=== PATIENT | female | born 1975 | race Caucasian/White ===

== ENCOUNTER 2024-02-05 07:25 | Observation (INO) ==
--- NOTE | 2024-02-05 07:39 | Emergency Department Note ---
History of Present Illness General Chief complaint: Weakness Stated complaint: WEAKNESS Time Seen by Provider: 02/05/24 07:31 Source: patient, family (I talked to the sister on the telephone), EMS (I talked to the paramedics when they brought her in), RN notes reviewed, old records reviewed (Attempted but no old record available) and other (I talked to Dr. Livingston's nurse on the telephone) Mode of arrival: ambulatory Limitations: no limitations History of Present Illness This patient is a 41-year-old female who has a history of dual diagnosis and is currently in inpatient [facility] comes in with increasing weakness and fluid buildup in her legs. She has been in [facility] for 2 weeks she did have a history of alcoholism and tells me she had not drank 40 days prior to going in and has been there for 2 weeks. She has had increased fluid buildup in her legs and also her right knee she has had increasing weakness she has got lightheaded and almost passed out in the bathroom today. No chest pain or shortness of breath .no fever chills.no dysuria or hematuria .no abdominal pain. no focal numbness or weakness except for being weak in the legs. She has had no blood or melena in her stool. She has not been vomiting and had no hematemesis. Home Medications Medication Instructions Recorded Confirmed Type acamprosate 333 mg tablet,delayed 333 mg PO TID 02/05/24 02/05/24 History release buspirone 10 mg tablet 10 mg PO DAILY 02/05/24 02/05/24 History carvedilol 3.125 mg tablet 0 mg PO DIRECTED 02/05/24 02/05/24 History ferrous sulfate 325 mg (65 mg 325 mg PO DAILY 02/05/24 02/05/24 History iron) tablet (FeroSul) lamotrigine 100 mg tablet 100 mg PO BID 02/05/24 02/05/24 History levothyroxine 50 mcg tablet 50 mcg PO DAILY 02/05/24 02/05/24 History medroxyprogesterone 150 mg/mL 150 mg IM DIRECTED 02/05/24 02/05/24 History intramuscular suspension potassium chloride 10 mEq 10 meq PO DAILY 02/05/24 02/05/24 History capsule,extended release quetiapine 100 mg tablet 100 mg PO HS 02/05/24 02/05/24 History vilazodone 20 mg tablet 10 mg PO BID 02/05/24 02/05/24 History Allergies Allergy/AdvReac Type Severity Reaction Status Date / Time No Known Allergies Allergy Unverified 02/05/24 14:18 Past Med/Surg History Problem List (Updated 02/05/24 @ 14:36 by Jefferson Morgan MD) Pancytopenia (Acute) Hypervolemia Right leg swelling (Acute) Alcohol use disorder (Acute) Weakness (Acute) Medical History History of torn meniscus of right knee Hypertension Liver cirrhosis Anxiety Bipolar 1 disorder Borderline personality disorder Depression Hypothyroidism Social History Smoking Status: Unknown if ever smoked Feels Safe at Home: Yes Immunizations: Past medical historyanxiety. Alcoholism Social history. she is from the [facility] she is currently at [facility] history of alcoholism Review of Systems A total of 10 systems reviewed and were otherwise negative Physical Exam Vital Signs Vital Signs - 24 hr 02/05/24 07:15 02/05/24 07:15 02/05/24 08:00 Temperature 36.5 C Temperature Source Oral Pulse Rate 66 Pulse Rate [Apical] 71 Pulse Rhythm [Apical] Regular Pulse Strength [Apical] Normal Respiratory Rate 16 22 Respiratory Effort / Characteristics Non-Labored Spontaneous Respiratory Depth Normal Respiratory Pattern Regular Blood Pressure 97/60 L Blood Pressure [Right Arm] 111/73 Blood Pressure Mean 72 Blood Pressure Mean [Right Arm] 85 Blood Pressure Position [Right Arm] Sitting Pulse Oximetry 100 100 Oxygen Delivery Method Room Air Room Air Sepsis Recent Fever Within 48 Hours No Sepsis New/Unexplained Change in Mental Status No Sepsis Action Taken by Nursing No Action Required 02/05/24 08:20 02/05/24 09:00 02/05/24 10:55 Temperature Temperature Source Pulse Rate 66 Pulse Rate [Apical] 64 74 Pulse Rhythm [Apical] Regular Regular Pulse Strength [Apical] Normal Normal Respiratory Rate 18 18 Respiratory Effort / Characteristics Non-Labored Spontaneous Non-Labored Spontaneous Respiratory Depth Normal Normal Respiratory Pattern Regular Regular Blood Pressure Blood Pressure [Right Arm] 112/70 114/74 Blood Pressure Mean Blood Pressure Mean [Right Arm] 84 87 Blood Pressure Position [Right Arm] Sitting Sitting Pulse Oximetry 98 100 Oxygen Delivery Method Room Air Room Air Sepsis Recent Fever Within 48 Hours Sepsis New/Unexplained Change in Mental Status Sepsis Action Taken by Nursing 02/05/24 12:47 Temperature Temperature Source Pulse Rate 71 Pulse Rate [Apical] Pulse Rhythm [Apical] Pulse Strength [Apical] Respiratory Rate Respiratory Effort / Characteristics Respiratory Depth Respiratory Pattern Blood Pressure Blood Pressure [Right Arm] Blood Pressure Mean Blood Pressure Mean [Right Arm] Blood Pressure Position [Right Arm] Pulse Oximetry Oxygen Delivery Method Sepsis Recent Fever Within 48 Hours Sepsis New/Unexplained Change in Mental Status Sepsis Action Taken by Nursing General: Well developed well nourished middle-age female who appears in no acute distress, breathing comfortably on room air. Normal speech HEENT: Normal cephalic atraumatic. Pupils are equal round and reactive to light. Sclera anicteric. Extraocular movements are intact. Oropharynx is pink with moist mucous membranes. No swelling of the mouth lips or tongue. Neck: Supple with a midline trachea. No meningeal signs or stiffness, no JVD or bruits. No Stridor. Chest: Clear to auscultation bilaterally. No wheezes or rhonchi. No increased work of breathing. Heart: Regular rate and rhythm without murmurs or gallops. Abdomen: Soft nontender, nondistended without rebound guarding or rigidity. Extremities: No cyanosis clubbing trace to 1+ bilateral lower extremity edema. No calf tenderness or assymetry. There may be some mild swelling of the right knee as well but there is no redness or warmth Spine/Back. Non tender to palpation. No CVA tenderness Skin: Good turgor without rashes. Neurologic exam: Cranial nerves two through 12 are intact. Motor and sensation are intact and symmetrical throughout. No definite asterixis. Medical Decision Making Differential Diagnosis Electrolyte or metabolic abnormality, toxicologic, alcohol use or withdrawal, liver disease, hepatic encephalopathy, cardiac disease, arrhythmia Medical Records Attestation: I reviewed the patient's medical records. Home Medications Current Medication List: was personally reviewed by me Laboratory Data Attestation: I reviewed the patient's lab results. 02/05/24 07:46 02/05/24 07:46 Lab Results 02/05/24 02/05/24 02/05/24 Range/Units 07:46 07:56 09:37 WBC 2.48 L (4.8-10.8) K/ul RBC 3.30 L (4.20-5.40) M/uL Hgb 10.4 L (12.0-16.0) g/dl Hct 31.5 L (37.0-47.0) % MCV 95.5 (80.0-100.0) fL MCH 31.5 (25.0-34.0) pg MCHC 33.0 (32.0-36.0) g/dL RDW Std Deviation 61.9 H (36.4-46.3) fL RDW Coeff of Felicitas 17.7 H (11.5-14.5) % Plt Count 30 L (130-400) K/uL MPV 12.4 (9.4-12.4) fL Immature Gran % (Auto) 0.4 % Neut % (Auto) 67.3 % Lymph % (Auto) 20.2 % [place] % (Auto) 7.7 % Eos % (Auto) 3.6 % Baso % (Auto) 0.8 % Neut # (Auto) 1.67 (1.40-6.50) K/uL Lymph # (Auto) 0.50 L (1.20-3.40) K/uL [place] # (Auto) 0.19 (0.11-0.59) K/uL Eos # (Auto) 0.09 (0.00-0.50) K/uL Baso # (Auto) 0.02 (0.00-0.20) K/uL Immature Gran # (Auto) 0.01 (0.01-0.20) K/uL Platelet Estimate Signific. Decreased L (Normal) Polychromasia 1+ Tear Drop Cells 1+ PT 14.3 H (9.0-12.0) Seconds INR 1.4 H (0.9-1.1) APTT 29 (21-31) Seconds PTT Ratio 1.1 Sodium 142 (136-145) mmol/L Potassium 3.8 (3.5-5.1) mmol/L Chloride 114 H (98-107) mmol/L Carbon Dioxide 22 (21-32) mmol/L Anion Gap 6 (3-11) BUN 14 (6-23) mg/dl Creatinine 0.74 (0.6-1.2) mg/dl Est Cr Clr Drug Dosing 121.1 ml/min eGFR 99.74 BUN/Creatinine Ratio 18.9 (10-20) Glucose 92 (70-99(Fasting)) mg/dl Lactate 2.0 (0.4-2.0) mmol/L Calcium 8.4 L (8.6-10.3) mg/dl Phosphorus (2.5-4.9) mg/dl Magnesium 1.7 (1.7-2.4) mg/dl Total Bilirubin 2.6 H (0.2-1.0) mg/dl AST 31 (13-39) U/L ALT 13 (7-52) U/L Alkaline Phosphatase 90 (34-104) U/L Ammonia TNP 34.0 Total Creatine Kinase 89 (26-192) U/L Troponin I High Sens 9.0 (0-14) pg/ml B-Natriuretic Peptide 137 H (0-100) pg/ml Total Protein 5.3 L (6.0-8.3) gm/dl Albumin 3.0 L (3.4-5.0) gm/dl Globulin 2.3 L (2.5-4.0) gm/dl Albumin/Globulin Ratio 1.3 (0.9-2) Vitamin B12 (180-914) pg/ml Folate (>5.38) ng/ml Procalcitonin (0-0.5) ng/ml TSH 3.209 (0.300-4.500) uIu/ml Ethyl Alcohol mg/dL < 10.0 (<10.0) mg/dl SARS-CoV-2, RNA, NAAT NEGATIVE (NEGATIVE) 02/05/24 Range/Units 11:58 WBC (4.8-10.8) K/ul RBC (4.20-5.40) M/uL Hgb (12.0-16.0) g/dl Hct (37.0-47.0) % MCV (80.0-100.0) fL MCH (25.0-34.0) pg MCHC (32.0-36.0) g/dL RDW Std Deviation (36.4-46.3) fL RDW Coeff of Felicitas (11.5-14.5) % Plt Count (130-400) K/uL MPV (9.4-12.4) fL Immature Gran % (Auto) % Neut % (Auto) % Lymph % (Auto) % [place] % (Auto) % Eos % (Auto) % Baso % (Auto) % Neut # (Auto) (1.40-6.50) K/uL Lymph # (Auto) (1.20-3.40) K/uL [place] # (Auto) (0.11-0.59) K/uL Eos # (Auto) (0.00-0.50) K/uL Baso # (Auto) (0.00-0.20) K/uL Immature Gran # (Auto) (0.01-0.20) K/uL Platelet Estimate (Normal) Polychromasia Tear Drop Cells PT (9.0-12.0) Seconds INR (0.9-1.1) APTT (21-31) Seconds PTT Ratio Sodium (136-145) mmol/L Potassium (3.5-5.1) mmol/L Chloride (98-107) mmol/L Carbon Dioxide (21-32) mmol/L Anion Gap (3-11) BUN (6-23) mg/dl Creatinine (0.6-1.2) mg/dl Est Cr Clr Drug Dosing ml/min eGFR BUN/Creatinine Ratio (10-20) Glucose (70-99(Fasting)) mg/dl Lactate (0.4-2.0) mmol/L Calcium (8.6-10.3) mg/dl Phosphorus 3.8 (2.5-4.9) mg/dl Magnesium (1.7-2.4) mg/dl Total Bilirubin (0.2-1.0) mg/dl AST (13-39) U/L ALT (7-52) U/L Alkaline Phosphatase (34-104) U/L Ammonia Total Creatine Kinase (26-192) U/L Troponin I High Sens (0-14) pg/ml B-Natriuretic Peptide (0-100) pg/ml Total Protein (6.0-8.3) gm/dl Albumin (3.4-5.0) gm/dl Globulin (2.5-4.0) gm/dl Albumin/Globulin Ratio (0.9-2) Vitamin B12 668 (180-914) pg/ml Folate > 22.30 (>5.38) ng/ml Procalcitonin 0.05 (0-0.5) ng/ml TSH (0.300-4.500) uIu/ml Ethyl Alcohol mg/dL (<10.0) mg/dl SARS-CoV-2, RNA, NAAT (NEGATIVE) Imaging Data Attestation: I personally reviewed and interpreted this imaging study as follows: My Impression: Chest x-raycardiomegaly there may be a mild congestive change. Head CTno hemorrhage or mass effect seen Radiologist's Impression: Chest X-Ray 02/05/24 07:32 XR chest 1V portable CLINICAL HISTORY: weakness COMPARISON STUDY: No previous studies for comparison. FINDINGS: Lung volumes are mildly diminished. There is no pneumothorax or pleural effusion. No consolidation to suggest pneumonia. There is mild enlargement of the cardiac silhouette and prominence of pulmonary vasculature. The findings may be technical. IMPRESSION: Mild enlargement of the cardiac silhouette and apparent pulmonary vascular congestion. The findings may be detected on this hypoventilatory study. ACT 112: Negative or not required by law. Electronically signed by: Naseem Milian M.D. 02/05/2024 8:[address] 02/05/24 08:10 CT head/brain wo con CLINICAL HISTORY: 49 years-old Female with weakness. Acute weakness TECHNIQUE: Multiple axial CT images of the head were obtained without contrast. A dose lowering technique was utilized adhering to the principles of ALARA. CT DOSE: 663.26 mGy.cm COMPARISON: None. FINDINGS: No acute intracranial hemorrhage, midline shift, intracranial mass, hydrocephalus, territorial ischemia or abnormal extra-axial collection. The calvarium is intact. The paranasal sinuses, mastoid air cells, and middle ear cavities are clear. IMPRESSION: No acute intracranial abnormality. ACT 112: Negative or not required by law. The above report was generated using voice recognition software. It may contain grammatical, syntax or spelling errors. Electronically signed by: Walker Marie M.D. 02/05/2024 8:59 AM Abdomen Ultrasound 02/05/24 10:48 US abdomen complete CLINICAL HISTORY: hypervolemic state ?cirrhosis, ascites, hydronephrosis COMPARISON STUDY: No previous studies for comparison. FINDINGS: This exam is significantly compromised by suboptimal penetration. No biliary ductal dilatation is identified. There is apparent nodularity of the liver surface. No hepatic lesions are identified although the liver is partially obscured. No gallstones are present. There is no sonographic Benson sign. Gallbladder wall thickening is noted. The wall appears edematous. The wall measures 1 cm in thickness. The pancreas is largely obscured. The spleen is enlarged, measuring 22 cm in craniocaudal dimension. There is no hydronephrosis. Right kidney is partially obscured. The left kidney measures 12.8 cm in maximal dimension. Caliber of visualized portions of the abdominal aorta is normal. No ascites is identified. IMPRESSION: 1. Exam significantly compromised by suboptimal penetration. Nodularity of the liver surface raises the possibility of cirrhosis. 2. No gallstones. No sonographic Benson sign. Moderate gallbladder wall thickening, a nonspecific finding, although cholecystitis is considered unlikely. 3. Moderate to marked splenomegaly. 4. Obscured pancreas and right kidney. ACT 112: Negative or not required by law. Electronically signed by: Naseem Milian M.D. 02/05/2024 12:25 PM Venous Doppler Study 02/05/24 12:21 RIGHT LOWER EXTREMITY VENOUS DOPPLER CLINICAL HISTORY: Right leg swelling. ?DVT COMPARISON STUDY: No previous studies for comparison. TECHNIQUE: Sonography of the deep venous system of the right lower extremity was performed. Compression and augmentation were evaluated. FINDINGS: The right common femoral, superficial femoral and popliteal veins were compressible. Augmentation was normal. Flow was shown within the deep calf vessels. Subcutaneous edema within the right lower extremity is noted. IMPRESSION: No evidence of deep venous thrombus within the right lower extremity. ACT 112: Negative or not required by law. Electronically signed by: Naseem Milian M.D. 02/05/2024 2:02 PM Knee X-Ray 02/05/24 12:26 RIGHT KNEE 2 VIEWS CLINICAL HISTORY: Right knee pain and swelling. FINDINGS: AP and crosstable lateral views of the right knee are obtained. No prior studies are available for comparison at the time of dictation. The skeletal structures are osteopenic. No fracture is seen. There is moderate to severe tricompartmental degenerative joint space narrowing, greatest in the lateral compartment where there is bony sclerosis and osteochondral irregularity. There are large marginal osteophytes, patellar enthesophytes, and degenerative beaking of the tibial spine. Chondrocalcinosis is seen in the medial compartment. A joint effusion is observed. Bony overgrowth is seen along the distal femur and proximal tibia. Soft tissue swelling is noted around the knee. IMPRESSION: 1. Soft tissue swelling and joint effusion with no radiographic evidence of acute fracture. 2. Osteopenia with degenerative change and chondrocalcinosis as above. Electronically signed by: Stanislav Vu M.D. 02/05/2024 2:11 PM ECG Data Attestation: I personally reviewed and interpreted this ECG as follows: Indication: + weakness Rate (beats per minute): 67 Rhythm: + normal sinus ECG Intervals/blocks: + Normal QRS, + Normal QT and + Normal NV ECG [place]: + Normal ECG ST segments: + Normal ST segments ECG Findings: no PACs or no PVCs Comparison ECG Date: no prior available MDM Narrative This patient comes in as described above. She was placed on a last ironer room C2 she has had increasing weakness and was having a hard time getting around. It seems like it is in her legs bilaterally she has no focal neurologic deficits. She is currently at [facility] and being treated for dual diagnosis including alcoholism. Her vital signs are stable. IV access was established and multiple blood testing was obtained. EKG was obtained shows no acute ischemic changes or ectopy seen. Her troponin was unremarkable. She does have pancytopenia which are about baseline. Her white count is low her hemoglobin is 10 which is baseline her platelets are 30,000 which is baseline I did talk to her sister as well as the nurse at the liver clinic she is followed that and they both said that she runs at 31,000 for platelets. She is no evidence of any active bleeding. She has been hemodynamically stable. She does have a history of varices but has no evidence to suggest she should acutely bleeding by history physical or labs. Her ammonia is normal and she does not appear to be in hepatic hepatic encephalopathy. It seems like she has had some lower extremity edema and that is causing her pain and difficulty work walking. At this point I do not think she can go back to [facility] until she is able to ambulate more. I did consult Dr. Parham to see the patient ER for these measures. Again I talked to the sister on the phone I also talked to Dr. Livingston's nurse and she did not have any further recommendations. The number to reach Dr. Livingston is [phone], or [phone]. Continuous cardiac monitoring: Orders placed in EMR for continuous last ironer call upon my evaluation patient noted to be in normal sinus rhythm rate of 67 Impression & Plan Weakness, Pancytopenia, Alcohol use disorder, Right leg swelling Discharge Plan Visit Data Chief Complaint: Weakness Stated Complaint: WEAKNESS ED Provider: Jefferson Morgan Discharge Problem: Weakness, Pancytopenia, Alcohol use disorder, Right leg swelling Patient Disposition: Admitted As Inpatient Discharge Instructions Interventions: ED Discharge Assessment Last Done: 02/05/24 14:22
[2024-02-05 08:20] LABS: Bilirubin,Total 2.6 mg/dl (0.2-1.0); Calcium 8.4 mg/dl (8.6-10.3); Magnesium 1.7 mg/dl (1.7-2.4); Potassium 3.8 mmol/L (3.5-5.1)
--- NOTE | 2024-02-05 08:22 | XRay Report ---
XR chest 1V portable CLINICAL HISTORY: weakness COMPARISON STUDY: No previous studies for comparison. FINDINGS: Lung volumes are mildly diminished. There is no pneumothorax or pleural effusion. No consol idation to suggest pneumonia. There is mild enlargement of the cardiac silhouette and prominence of p ulmonary vasculature. The findings may be technical. IMPRESSION: Mild enlargement of the cardiac silhouette and apparent pulmonary vascular congestion. T he findings may be detected on this hypoventilatory study. ACT 112: Negative or not required by law. Electronically signed by: Naseem Milian M.D. 02/05/2024 8:20 AM
[2024-02-05 08:26] LABS: Albumin Globulin Ratio 1.3 (0.9-2); BUN Creatinine Ratio 18.9 (10-20); Creatinine Clr Calc Pharmacy 121.1 ml/min; Globulin 2.3 gm/dl (2.5-4.0); Total Protein 5.3 gm/dl (6.0-8.3)
[2024-02-05 08:37] LABS: Basophils # (auto) 0.02 K/uL (0.00-0.20); Basophils % (auto) 0.8 %; Eosinophils # (auto) 0.09 K/uL (0.00-0.50); Eosinophils % (auto) 3.6 %; Hematocrit (blood only) 31.5 % (37.0-47.0); Hemoglobin 10.4 g/dl (12.0-16.0); INR 1.4 (0.9-1.1); Immature Granulocytes # (auto) 0.01 K/uL (0.01-0.20); Immature Granulocytes % (auto) 0.4 %; Lymphocytes % (auto) 20.2 %; Mean Corpuscular Hemoglobin 31.5 pg (25.0-34.0); Mean Corpuscular Volume 95.5 fL (80.0-100.0); Mean Platelet Volume 12.4 fL (9.4-12.4); Monocytes # (auto) 0.19 K/uL (0.11-0.59); Monocytes % (auto) 7.7 %; Neutrophils # (auto) 1.67 K/uL (1.40-6.50); Neutrophils % (auto) 67.3 %; Partial Thromboplastin Ratio 1.1; Partial Thromboplastin Time 29 Seconds (21-31); Platelet Count 30 K/uL (130-400); Platelet Estimate Signific. Decreased (Normal); Polychromasia 1+; Prothrombin Time 14.3 Seconds (9.0-12.0); RDW Coefficient of Variation 17.7 % (11.5-14.5); RDW Standard Deviation 61.9 fL (36.4-46.3); Tear Drop Cells 1+; White Blood Count 2.48 K/ul (4.8-10.8)
[2024-02-05 08:40] LABS: Thyroid Stimulating Hormone 3.209 uIu/ml (0.300-4.500)
--- NOTE | 2024-02-05 09:00 | CT Scan Report ---
CT head/brain wo con CLINICAL HISTORY: 49 years-old Female with weakness. Acute weakness TECHNIQUE: Multiple axial CT images of the head were obtained without contrast. A dose lowering tech nique was utilized adhering to the principles of ALARA. CT DOSE: 663.26 mGy.cm COMPARISON: None. FINDINGS: No acute intracranial hemorrhage, midline shift, intracranial mass, hydrocephalus, territorial ischem ia or abnormal extra-axial collection. The calvarium is intact. The paranasal sinuses, mastoid air cells, and middle ear cavities are clear . IMPRESSION: No acute intracranial abnormality. ACT 112: Negative or not required by law. The above report was generated using voice recognition software. It may contain grammatical, syntax o r spelling errors. Electronically signed by: Walker Marie M.D. 02/05/2024 8:59 AM
--- NOTE | 2024-02-05 10:45 | Electrocardiogram Report ---
Test Reason : Blood Pressure : */* mmHG Vent. Rate : 67 BPM Atrial Rate : 67 BPM P-R Int : 162 ms QRS Dur : 88 ms QT Int : 448 ms P-R-T Axes : -14 52 38 degrees QTcB Int : 473 ms Normal sinus rhythm No previous ECGs available Confirmed by Vinny Jacobsen ([id number]) on 02/05/2024 10:45:24 AM Referred By: Confirmed By: Vinny Jacobsen
--- NOTE | 2024-02-05 10:59 | History & Physical Report ---
Date of Service February 05, 2024 Assessment & Plan (1) Hypervolemia: Plan: Weight increased with bilateral leg swelling - suspect contributing towards ambulatory dysfunction US abdomen to assess for ascites. Reportedly known cirrhosis of her liver. TTE to assess for cardiomyopathy UA to assess for proteinuria Lasix 40 mg IV Strict I's and O's Daily standing weight (2) Right leg swelling: Plan: Ultrasound venous Doppler to rule out DVT (3) Effusion, right knee: Plan: Suspect this is the biggest reason for ambulatory dysfunction. Unclear underlying etiology although meniscal tear mentioned on admission notes at [facility] therefore low suspicion it is acute but certainly could be getting worse. XR right knee. If ultrasound venous Doppler negative for DVT will consult orthopedics to consider aspiration for diagnostic and therapeutic purposes. (4) Weakness: Plan: No one sided weakness to suggest CVA - suspect combination of her medications with right knee pain Her new medication is Latuda and since this is a medication she takes at 5 PM as per nurse at [facility] I suspect this is the medication that she reports having a side effect to including tiredness, clammy, dizziness. Consult psychiatry to consider switching this medication B12, B1 labs - not noted to be on thiamine, will start supplementation (5) Alcohol use disorder: Plan: Previously on Campral although this does not appear to be on a current medication list (6) Liver cirrhosis: Plan: Presumably alcohol related MELD 3.0 - 16.6, 97.4% estimated 90-day survival (7) Pancytopenia: Plan: Known thrombocytopenia per [facility] although I suspect her pancytopenia is not acute either and likely secondary to liver cirrhosis Procalcitonin negative. Low suspicion of septic knee on exam. Trend with AM labs (8) Elevated INR: Plan: INR 1.4. Suspect secondary to liver cirrhosis. Vitamin K 10 mg IV. Repeat INR in AM. (9) Hypertension: Plan: Hold carvedilol due to dizziness and increasing Lasix as above (10) Hypothyroidism: Plan: TSH 3.2. Continue levothyroxine (11) Depression: (12) Borderline personality disorder: (13) Bipolar 1 disorder: (14) Anxiety: (15) History of torn meniscus of right knee: Plan VTE prophylaxis - SCDs Diet - Low Na Disposition - observation to med/tele Admission and Anticipated Discharge Date Admission Date: February 05, 2024 History of Present Illness Chief Complaint: Ambulatory dysfunction Fall Right knee pain Primary Care Provider: [facility] Claribel Kyle is a 49 year old female from [facility] who presents to the ER with generalized weakness and fall. History limited by lack of records from outside institutions and patient memory - history largely obtained from nurses at [facility] rehabilitation over the phone. She came to the ER today because on ambulating towards the bathroom she fell and was unable to ambulate following this or bear any weight on her right knee. She denies any dizziness, chest pain, shortness of breath prior to falling. She is unclear on history for the pain and swelling of her right knee but appears to have been ongoing for atleast the last month but getting wrose. She denies any history of gout or inflammatory arthritis. On discussion with [place] she has a history of meniscal tear of her right knee listed on her problem list on admission there in mid January. She has a history of alcohol use disorder. She was admitted to [facility] and went through withdrawal. She was transferred to [facility] rehab mid January for ongoing rehabilitation. During her time there she notes gaining 25 to 30 pounds over the last 5 weeks with significant leg swelling. Weight 239lb on 01/10/24 (admission weight at [facility], today's weight 259lb). No chest pain or shortness of breath. She was taking Lasix at [facility] although reportedly was discontinued for the last few days possibly due to dizziness. She was on additional doses of Lasix for fluid retention for 3 days a mid-January. No known history of heart failure. She has noticed some dizziness but not prior to this fall. She reports having a new medication around 1 to 2 PM which causes her to be dizzy, nauseous, tired and clammy. On discussion with [facility] I suspect this is her Latuda which is a new medication for her during her time at [facility] and she takes around 5pm unlike her other medications at 8am and 8pm. Previously she was on vilazodone which on discussion with her I believe this started at [place] but discontinued shortly after she went to [facility]. Reportedly she went to [facility] on January 22 due to ambulatory dysfunction and was discharged from the ER with a diagnosis of liver cirrhosis and hypoalbuminemia She reports not taking any of her morning medications today. She denies any fever, chills, respiratory, gastrointestinal or urinary symptoms. She notes prior noncompliance with medications but she has been compliant since July. Allergies Allergy/AdvReac Type Severity Reaction Status Date / Time No Known Allergies Allergy Unverified 02/05/24 14:18 Home Medications Medication Instructions Recorded Confirmed Type buspirone 10 mg tablet 10 mg PO BID 02/05/24 02/05/24 History carvedilol 3.125 mg tablet 3.125 mg PO BID 02/05/24 02/05/24 History ferrous sulfate 325 mg (65 mg 325 mg PO DAILY 02/05/24 02/05/24 History iron) tablet (FeroSul) furosemide 40 mg tablet 40 mg PO QAM 02/05/24 02/05/24 History lactulose 10 gram/15 mL oral 10 g PO DAILY 02/05/24 02/05/24 History solution lamotrigine 100 mg tablet 100 mg PO BID 02/05/24 02/05/24 History levothyroxine 50 mcg tablet 50 mcg PO DAILY 02/05/24 02/05/24 History lurasidone 40 mg tablet (Latuda) 40 mg PO QDL 02/05/24 02/05/24 History medroxyprogesterone 150 mg/mL 150 mg IM DIRECTED 02/05/24 02/05/24 History intramuscular suspension pantoprazole 40 mg tablet,delayed 40 mg PO DAILY 02/05/24 02/05/24 History release potassium chloride 10 mEq 10 meq PO DAILY 02/05/24 02/05/24 History capsule,extended release quetiapine 100 mg tablet 150 mg PO HS 02/05/24 02/05/24 History Past Med/Surg History Problem List (Updated 02/05/24 @ 23:30 by Abner Parham MD) Elevated INR Effusion, right knee Pancytopenia (Acute) Hypervolemia Right leg swelling (Acute) Alcohol use disorder (Acute) Weakness (Acute) Medical History History of torn meniscus of right knee Hypertension Liver cirrhosis Anxiety Bipolar 1 disorder Borderline personality disorder Depression Hypothyroidism Social History Smoking Status: Unknown if ever smoked Hx Alcohol Use: Yes Hx Substance Use: Yes Last Used Substance Other:: Unable to provide details Preferred Language: Niuean Magazine Keeper Required: No Current Living Situation: Other Current Living Situation Comment: [facility] Feels Safe at Home: Yes Review of Systems 2 Review of Systems: All systems reviewed & are unremarkable except as noted in HPI & below Physical Exam Constitutional: WD/WN, vitals as above Eyes: PERRL, conjunctivae normal, anicteric sclerae ENMT: external ear and nose normal, oropharynx normal Respiratory: normal respiratory effort, lungs clear to auscultation Cardiovascular: Rate/Rhythm: regular rate and regular rhythm Heart Sounds: no murmur Extremities: normal capillary refill and + pedal edema (R > L 1+ pitting b/l); no calf tenderness Gastrointestinal (Abdomen): normal bowel sounds, soft, nontender, no hepatosplenomegaly Musculoskeletal: no cyanosis or clubbing, extremities motor strength 5/5 Knee: + effusion and + joint line tenderness; no skin erythema Skin: no rashes, warm and dry (No areas of cellulitis) Neurologic: moves all extremities and awake; not confused Motor/Sensory: no tremor and no asterixis Psychiatric: A+Ox3, euthymic affect Genitourinary: no CVA tenderness Results & Data Results & Data Vital Signs (Past 12 Hours) Vital Signs Temp Pulse Pulse Resp BP BP Pulse Ox 02/05/24 10:55 74 18 114/74 100 02/05/24 09:00 64 18 112/70 98 02/05/24 08:20 66 02/05/24 08:00 71 22 111/73 100 02/05/24 07:15 02/05/24 07:15 36.5 C 66 16 97/60 L 100 O2 Del Method 02/05/24 10:55 Room Air 02/05/24 09:00 Room Air 02/05/24 08:20 02/05/24 08:00 Room Air 02/05/24 07:15 Room Air 02/05/24 07:15 Laboratory Results Abnormal lab results 02/05/24 02/05/24 Range/Units 07:46 09:37 WBC 2.48 L (4.8-10.8) K/ul RBC 3.30 L (4.20-5.40) M/uL Hgb 10.4 L (12.0-16.0) g/dl Hct 31.5 L (37.0-47.0) % RDW Std Deviation 61.9 H (36.4-46.3) fL RDW Coeff of Felicitas 17.7 H (11.5-14.5) % Plt Count 30 L (130-400) K/uL Lymph # (Auto) 0.50 L (1.20-3.40) K/uL Platelet Estimate Signific. Decreased L (Normal) PT 14.3 H (9.0-12.0) Seconds INR 1.4 H (0.9-1.1) Chloride 114 H (98-107) mmol/L Calcium 8.4 L (8.6-10.3) mg/dl Total Bilirubin 2.6 H (0.2-1.0) mg/dl B-Natriuretic Peptide 137 H (0-100) pg/ml Total Protein 5.3 L (6.0-8.3) gm/dl Albumin 3.0 L (3.4-5.0) gm/dl Globulin 2.3 L (2.5-4.0) gm/dl [address] head/brain wo con CLINICAL HISTORY: 49 years-old Female with weakness. Acute weakness TECHNIQUE: Multiple axial CT images of the head were obtained without contrast. A dose lowering technique was utilized adhering to the principles of ALARA. CT DOSE: 663.26 mGy.cm COMPARISON: None. FINDINGS: No acute intracranial hemorrhage, midline shift, intracranial mass, hydrocephalus, territorial ischemia or abnormal extra-axial collection. The calvarium is intact. The paranasal sinuses, mastoid air cells, and middle ear cavities are clear. IMPRESSION: No acute intracranial abnormality. XR chest 1V portable CLINICAL HISTORY: weakness COMPARISON STUDY: No previous studies for comparison. FINDINGS: Lung volumes are mildly diminished. There is no pneumothorax or pleural effusion. No consolidation to suggest pneumonia. There is mild enlargement of the cardiac silhouette and prominence of pulmonary vasculature. The findings may be technical. IMPRESSION: Mild enlargement of the cardiac silhouette and apparent pulmonary vascular congestion. The findings may be detected on this hypoventilatory study. Medications Administered ER medications given: None ECG Rate (beats per minute): 67 Rhythm: normal sinus Findings: no acute ischemic change Comparison ECG Date: no prior available Code Status & VTE Plan Code Status Full VTE Prophylaxis Plan VTE Prophylaxis will be ordered: No PG Care Time/CCT Total # of Minutes Spent Total Time Spent with Patient: Total time spent is greater than 50% in coordination of care (as documented) at patient's floor/unit and/or counseling patient: Coding Level of Care Code 61683 INT INP/OBS CARE 75MIN Diagnoses Other hypervolemia E87.79 Hypervolemia type: other Right leg swelling M79.89 Effusion, right knee M25.461 Weakness R53.1 Alcohol use disorder F10.90 Liver cirrhosis K74.60 Pancytopenia D61.818 Elevated INR R79.1 Hypertension I10 Hypothyroidism E03.9 Depression F32.A Borderline personality disorder F60.3 Bipolar 1 disorder F31.9 Anxiety F41.9 History of torn meniscus of right knee Z87.828 (1) Hypervolemia Hypervolemia type: other Qualified Code(s): E87.79 - Other fluid overload
--- NOTE | 2024-02-05 12:26 | Ultrasound Report ---
US abdomen complete CLINICAL HISTORY: hypervolemic state ?cirrhosis, ascites, hydronephrosis COMPARISON STUDY: No previous studies for comparison. FINDINGS: This exam is significantly compromised by suboptimal penetration. No biliary ductal dilatat ion is identified. There is apparent nodularity of the liver surface. No hepatic lesions are identifi ed although the liver is partially obscured. No gallstones are present. There is no sonographic Gabriela y sign. Gallbladder wall thickening is noted. The wall appears edematous. The wall measures 1 cm in t hickness. The pancreas is largely obscured. The spleen is enlarged, measuring 22 cm in craniocaudal d imension. There is no hydronephrosis. Right kidney is partially obscured. The left kidney measures 12 .8 cm in maximal dimension. Caliber of visualized portions of the abdominal aorta is normal. No ascit es is identified. IMPRESSION: 1. Exam significantly compromised by suboptimal penetration. Nodularity of the liver surface raises t he possibility of cirrhosis. 2. No gallstones. No sonographic Benson sign. Moderate gallbladder wall thickening, a nonspecific fin ding, although cholecystitis is considered unlikely. 3. Moderate to marked splenomegaly. 4. Obscured pancreas and right kidney. ACT 112: Negative or not required by law. Electronically signed by: Naseem Milian M.D. 02/05/2024 12:25 PM
[2024-02-05 12:33] LABS: Phosphorus 3.8 mg/dl (2.5-4.9)
[2024-02-05 13:00] LABS: Folate (Folic Acid),Ser orPlas > 22.30 ng/ml (>5.38)
[2024-02-05 13:01] LABS: Vitamin B12 668 pg/ml (180-914)
--- NOTE | 2024-02-05 14:03 | Ultrasound Report ---
RIGHT LOWER EXTREMITY VENOUS DOPPLER CLINICAL HISTORY: Right leg swelling. ?DVT COMPARISON STUDY: No previous studies for comparison. TECHNIQUE: Sonography of the deep venous system of the right lower extremity was performed. Compress ion and augmentation were evaluated. FINDINGS: The right common femoral, superficial femoral and popliteal veins were compressible. Augme ntation was normal. Flow was shown within the deep calf vessels. Subcutaneous edema within the right lower extremity is noted. IMPRESSION: No evidence of deep venous thrombus within the right lower extremity. ACT 112: Negative or not required by law. Electronically signed by: Naseem Milian M.D. 02/05/2024 2:02 PM
--- NOTE | 2024-02-05 14:12 | XRay Report ---
RIGHT KNEE 2 VIEWS CLINICAL HISTORY: Right knee pain and swelling. FINDINGS: AP and crosstable lateral views of the right knee are obtained. No prior studies are availa ble for comparison at the time of dictation. The skeletal structures are osteopenic. No fracture is s een. There is moderate to severe tricompartmental degenerative joint space narrowing, greatest in the lateral compartment where there is bony sclerosis and osteochondral irregularity. There are large ma rginal osteophytes, patellar enthesophytes, and degenerative beaking of the tibial spine. Chondrocalc inosis is seen in the medial compartment. A joint effusion is observed. Bony overgrowth is seen along the distal femur and proximal tibia. Soft tissue swelling is noted around the knee. IMPRESSION: 1. Soft tissue swelling and joint effusion with no radiographic evidence of acute fracture. 2. Osteopenia with degenerative change and chondrocalcinosis as above. Electronically signed by: Stanislav Vu M.D. 02/05/2024 2:11 PM
[2024-02-05] MEDS ORDERED: Patient's ALLERGY Info needs ENTERED SCH (14:15)
--- NOTE | 2024-02-05 15:27 | XCELERA ---
[id number] \\[id number]
[2024-02-05] MEDS: lamoTRIgine 100 MG TAB PO STA (15:55)
[2024-02-05] MEDS: busPIRone 5 MG TAB PO STA (15:55)
[2024-02-05] MEDS: LURASIDONE HCL 20 MG TAB PO STA (15:55)
[2024-02-05] MEDS: PANTOprazole 40 MG TAB PO STA (18:16)
[2024-02-05] MEDS: FUROSEMIDE 40 MG/4 ML VIAL IV STA (18:28)
[2024-02-05 19:51] LABS: Appearance Urine Clear (Clear); Bacteria Urine Automated None Seen (None Seen); Bilirubin Urine Negative (Negative); Blood Urine Negative (Negative); Cast Urine Automated 0-2 /lpf (0-2); Color Urine Dark Yellow; Glucose Urine UA Negative (Negative); Ketones Urine Negative (Negative); Leukocyte Esterase Urine Trace (Negative); Nitrite Urine Negative (Negative); Protein Urine Negative (Negative); RBC Urine Automated 0-2 /hpf (0-2); Specific Gravity Urine 1.017 (1.000-1.030); Urobilinogen Urine Positive (Negative); WBC Urine Automated 0-5 /hpf (0-5); pH Urine 6.5 (4.5-7.5)
[2024-02-05] MEDS ORDERED: ACETAMINOPHEN 325 MG TAB PO PRN (20:00)
[2024-02-05] MEDS ORDERED: oxyCODONE HCL IR 5 MG TAB (IMMEDIATE RELEASE) PO PRN ×2 (20:01)
[2024-02-05] MEDS: LIDOCAINE 1% LOCAL 20 ML VIAL ONE (21:40)
[2024-02-05] MEDS: LIDOCAINE 1% LOCAL 20 ML VIAL INFIL ONE (21:40)
[2024-02-05 21:51] LABS: C Reactive Protein < 0.50 mg/dl (0-0.5)
--- NOTE | 2024-02-05 21:59 | Orthopedic Consultation ---
Date of Consultation February 05, 2024 Assessment & Plan (1) Effusion, right knee: Plan I personally saw and evaluated the patient this evening. She has a moderate to severe right knee effusion and pain with passive range of motion of the knee. Although her ESR is low, her CRP has not yet resulted, and given her significant amount of pain in the knee as well as her generalized malaise/fatigue, I do believe that arthrocentesis is a reasonable next step. Please see separate procedure note for full details of the arthrocentesis, however I did obtain approximately 50 cc of somewhat murky appearing yellow fluid. The patient tolerated this without acute complaint or complication. I have sent the fluid for analysis to the lab including synovial cell count/differential, culture and Gram stain, crystal evaluation, Lyme evaluation. We will keep the patient n.p.o. this evening in case her cell count is concerning for infection, however my suspicion based on the fluid that was returned is somewhat low. She may continue to weight-bear as tolerated. Orthopedics will continue to follow along. Thank you for allowing me to participate in the care of this patient. History of Present Illness Reason for Consultation: Right knee effusion and pain Requesting Physician: Dr. Parham Attending Physician: Abner Parham MD History of Present Illness This is a 49-year-old female who presented to [facility] from her psychiatric facility due to swelling in her bilateral lower extremities, severe right knee pain. She was admitted to the medical service for these complaints as well as generalized malaise. On my evaluation, the patient is now participating well with the history and physical exam. She notes fairly severe right knee pain that is bad enough that she is unable to flex or extend her knee, however the patient's nurse does note that she has been able to walk to the bedside commode multiple times. Patient notes that she has had knee pain for "a very long time", however over the course of the last 48 hours, the pain has intensified. She denies any fevers or chills, however does note significant swelling in her right knee which is abnormal for her. Allergies Allergy/AdvReac Type Severity Reaction Status Date / Time No Known Allergies Allergy Unverified 02/05/24 14:18 Home Medications Medication Instructions Recorded Confirmed Type buspirone 10 mg tablet 10 mg PO BID 02/05/24 02/05/24 History carvedilol 3.125 mg tablet 3.125 mg PO BID 02/05/24 02/05/24 History ferrous sulfate 325 mg (65 mg 325 mg PO DAILY 02/05/24 02/05/24 History iron) tablet (FeroSul) furosemide 40 mg tablet 40 mg PO QAM 02/05/24 02/05/24 History lactulose 10 gram/15 mL oral 10 g PO DAILY 02/05/24 02/05/24 History solution lamotrigine 100 mg tablet 100 mg PO BID 02/05/24 02/05/24 History levothyroxine 50 mcg tablet 50 mcg PO DAILY 02/05/24 02/05/24 History lurasidone 40 mg tablet (Latuda) 40 mg PO QDL 02/05/24 02/05/24 History medroxyprogesterone 150 mg/mL 150 mg IM DIRECTED 02/05/24 02/05/24 History intramuscular suspension pantoprazole 40 mg tablet,delayed 40 mg PO DAILY 02/05/24 02/05/24 History release potassium chloride 10 mEq 10 meq PO DAILY 02/05/24 02/05/24 History capsule,extended release quetiapine 100 mg tablet 150 mg PO HS 02/05/24 02/05/24 History Patient History Medical History History of torn meniscus of right knee Hypertension Liver cirrhosis Anxiety Bipolar 1 disorder Borderline personality disorder Depression Hypothyroidism Social History Smoking Status: Unknown if ever smoked Hx Alcohol Use: Yes Hx Substance Use: Yes Last Used Substance Other:: Unable to provide details Preferred Language: Yi Agile Qa Tester Required: No Current Living Situation: Other Current Living Situation Comment: [email or web address] Feels Safe at Home: Yes Review of Systems Review of Systems: Negative unless otherwise noted above Physical Exam Physical Exam: On physical exam, the patient has diffuse soft tissue edema in her bilateral lower extremities to the level of the tibial tuberosity. She does have a significant effusion of the right knee that is tender to palpation. There is no discrete area that is more tender than others, she is diffusely tender. The patient does have some pain with passive range of motion of the knee. She has intact sensation in the lower extremities. No additional areas of tenderness besides the right knee. She does note some pain in the left side but the right knee is way worse and more swollen. Results & Data Vital Signs (Past 12 Hours) Vital Signs Temp Pulse Pulse Pulse Resp BP Pulse Ox 02/05/24 19:30 36.6 C 72 18 110/73 96 02/05/24 15:52 36.9 C 70 18 113/73 98 02/05/24 14:52 74 20 117/62 99 02/05/24 14:21 02/05/24 13:10 77 20 98 02/05/24 12:47 71 02/05/24 10:55 74 18 114/74 100 Pulse Ox O2 Del Method O2 Del Method 02/05/24 19:30 Room Air 02/05/24 15:52 Room Air 02/05/24 14:52 Room Air 02/05/24 14:21 98 Room Air 02/05/24 13:10 Room Air 02/05/24 12:47 02/05/24 10:55 Room Air Laboratory Results White blood cell count 2.48 Platelet count 30 ESR 2 mm/h CRP not resulted Diagnostic Findings X-rays of the right knee were personally interpreted and reviewed. These demonstrate a moderate-sized joint effusion and moderate to severe degenerative changes within the knee with evidence of joint space narrowing, osteophytes.
--- NOTE | 2024-02-05 22:06 | Procedure Note ---
Procedure Note Date of Service February 05, 2024 Note Patient: Claribel Larkin Date of : 1975 Procedure: Arthrocentesis right knee Surgeon: Dr. Matthew Chatterjee DO History: Patient presented to the emergency department with right knee effusion and pain. On exam she had pain with passive range of motion. I did discuss the patient the risks and benefits of performing an arthrocentesis. The risk associated include introducing an infection into the knee, pain, bleeding, damage to surrounding structures. Benefits include determining if the knee does have an infection. After thorough discussion of the risks and benefits, the patient wished to proceed with right knee arthrocentesis. Description of procedure: I palpated the bony landmarks including the lateral aspect of the patella. I then made a suri approximately 1 cm proximal and 1 cm posterior to this landmark. I then cleansed the area with alcohol followed by Betadine. Using sterile technique I injected 5 cc of 1% lidocaine without epinephrine into the subcutaneous tissues to aid in local analgesia. Once the anesthetic had set up, using sterile technique I introduced an 18-gauge spinal needle into the suprapatellar pouch through the superolateral entry portal. I then withdrew approximate 50 cc of joint fluid. Hemostasis was achieved with direct pressure, a Band-Aid, gauze, Topher wrap was applied to the knee. The syringe was capped and hand-delivered to the lab for analysis. The patient tolerated the procedure well without any acute complications. Plan: Patient is n.p.o. at midnight tonight. We will follow cultures. Coding
[2024-02-05 22:18] LABS: Appearance Synovial Fluid Slightly Hazy; Color Synovial Fluid Yellow; Mononuclear WBC Synovial 76.2 %; Polynuclear WBC Synovial 23.8 %; RBC Synovial Fluid Auto 3000 /uL; Source Synovial Fluid Right Knee; WBC Synovial Fluid Auto 178 /ul (0-200)
[2024-02-05] MEDS: busPIRone 5 MG TAB PO SCH (22:51)
[2024-02-05] MEDS: lamoTRIgine 100 MG TAB PO SCH (22:52)
[2024-02-05] MEDS: QUEtiapine FUMARATE 25 MG TABLET PO SCH (22:52)
[2024-02-05] MEDS: PHYTONADIONE 10 MG in DEXTROSE 5% 50 ML IV ONE (22:56)
[2024-02-06] MEDS: LEVOTHYROXINE SODIUM 50 MCG TABLET PO SCH (05:24)
[2024-02-06 06:58] LABS: Basophils # (auto) 0.03 K/uL (0.00-0.20); Eosinophils # (auto) 0.11 K/uL (0.00-0.50); Eosinophils % (auto) 3.6 %; Hematocrit (blood only) 30.1 % (37.0-47.0); Hemoglobin 10.3 g/dl (12.0-16.0); Immature Granulocytes # (auto) 0.01 K/uL (0.01-0.20); Immature Granulocytes % (auto) 0.3 %; Lymphocytes % (auto) 25.9 %; Mean Corpuscular Hemoglobin 31.8 pg (25.0-34.0); Mean Corpuscular Hgb Conc 34.2 g/dL (32.0-36.0); Mean Corpuscular Volume 92.9 fL (80.0-100.0); Mean Platelet Volume 12.5 fL (9.4-12.4); Monocytes # (auto) 0.25 K/uL (0.11-0.59); Monocytes % (auto) 8.1 %; Neutrophils # (auto) 1.89 K/uL (1.40-6.50); Neutrophils % (auto) 61.1 %; Platelet Count 35 K/uL (130-400); RDW Coefficient of Variation 17.5 % (11.5-14.5); RDW Standard Deviation 59.7 fL (36.4-46.3); Red Blood Count 3.24 M/uL (4.20-5.40); White Blood Count 3.09 K/ul (4.8-10.8)
[2024-02-06 07:14] LABS: Albumin Globulin Ratio 1.3 (0.9-2); Albumin Level 2.8 gm/dl (3.4-5.0); BUN Creatinine Ratio 15.5 (10-20); Bilirubin,Total 2.9 mg/dl (0.2-1.0); Calcium 8.2 mg/dl (8.6-10.3); Creatinine Clr Calc Pharmacy 103.3 ml/min; Globulin 2.2 gm/dl (2.5-4.0); Potassium 3.7 mmol/L (3.5-5.1)
[2024-02-06 07:18] LABS: INR 1.3 (0.9-1.1); Prothrombin Time 14.2 Seconds (9.0-12.0)
--- NOTE | 2024-02-06 08:27 | Orthopedic Progress Note ---
Date of Service February 06, 2024 Assessment & Plan (1) Effusion, right knee: Plan Patient demonstrates improved pain since aspiration. Aspiration results are not concerning for infection with only 178 WBCs and negative gramstain. Cultures are pending, but I anticipate these will be negative given the above No plans for OR today. Admission and Anticipated Discharge Date Admission Date: February 05, 2024 Subjective patient seen and examined at bedside. She notes improvement in her right knee pain since the asiration last evening. no fevers or chills. no acute events overnight. Review of Systems Review of Systems: negative unless otherwise stated above. Physical Exam Physical Exam: Right knee: improved pain and ROM since aspiration. no erythema. mild tenderness to palpation. SILT throughout. feet WWP. improved edema since last evening. Results & Data Vital Signs (Past 12 Hours) Vital Signs Temp Pulse Pulse Resp BP Pulse Ox O2 Del Method 02/06/24 07:40 37.0 C 73 18 103/68 97 Room Air 02/06/24 02:21 36.8 C 73 16 113/73 96 Room Air 02/05/24 22:56 37.2 C 74 16 100/61 96 Room Air 02/05/24 21:56 78 Laboratory Results Right Knee: WBC: 178 RBC: 3000 %PMNs: 23.8% gram stain negative lyme: pending crystals: pending Diagnostic Findings no new imaging
[2024-02-06] MEDS: FUROSEMIDE 40 MG/4 ML VIAL IV SCH (10:07)
[2024-02-06] MEDS: PANTOprazole 40 MG TAB PO SCH (10:08)
[2024-02-06] MEDS: LACTULOSE SYRUP 10 GM/15 ML BTL 960 ML PO SCH (10:08)
[2024-02-06] MEDS: THIAMINE HCL 100 MG TAB PO SCH (10:09)
[2024-02-06] MEDS: POTASSIUM CHLORIDE 10 MEQ TABCR PO SCH (10:10)
--- NOTE | 2024-02-06 12:07 | Magnetic Resonance Report ---
MRI OF THE RIGHT KNEE WITHOUT CONTRAST CLINICAL HISTORY: Internal derangement. Right knee pain. COMPARISON STUDY: Right knee radiographs February 05, 2024. TECHNIQUE: Utilizing a 1.5 Mari magnet and dedicated coil, multiplanar, multiecho imaging of the rig ht knee was performed without intravenous or intraarticular contrast. FINDINGS: This study is moderately compromised by artifact. Extensor mechanism is intact. Irregularit y of the tibial tubercle is chronic. There is a moderate size joint effusion. A small joint bodies me asure up to 5 mm. There are no fractures. No marrow replacement is present. There is moderate marrow edema within the anterior aspect of the proximal right tibia. No fracture line is identified. Mild de pression of the lateral tibial plateau is chronic. This may be degenerative. The posterior cruciate l igament is intact. There is increased T2 signal within the anterior cruciate ligament. The fibers are intact. The medial collateral ligament and lateral collateral ligament complex are intact. There is a complex tear of the lateral meniscus which is diminutive and irregular. The majority of the lateral meniscus is extruded. No medial meniscal tear is present. There is severe lateral compartment chondr osis with near complete loss of the cartilage. Moderate patellofemoral compartment chondrosis with os teophytosis is present. There is mild medial compartment chondrosis with osteophytosis. IMPRESSION: 1. Severe right knee osteoarthritis, most pronounced within the lateral compartment, as described abo ve. 2. Complex lateral meniscal tear. The lateral meniscus is diminutive, irregular and largely extruded. No medial meniscal tear. 3. Moderate size joint effusion with several small joint bodies. 4. Increased T2 signal within the anterior cruciate ligament with intact fibers. This suggests mucoid degeneration. Intact PCL, MCL and LCL. 5. Moderate marrow edema within the anterior aspect of the proximal right tibia. No associated fractu re line. There is nonspecific although could reflect a contusion. ACT 112: Negative or not required by law. Electronically signed by: Naseem Milian M.D. 02/06/2024 12:05 PM
--- NOTE | 2024-02-06 12:53 | Hospitalist Progress Note ---
Date of Service February 06, 2024 Assessment & Plan (1) Hypervolemia: Plan: Weight increased with bilateral leg swelling . Abdomen ultrasound reveals evidence of cirrhosis. No ascites seen on abdomen ultrasound. (2) Right leg swelling: Plan: Right lower extremity venous Doppler evaluation negative for DVT (3) Effusion, right knee: Plan: She apparently fell at [facility]. MRI scan reveals lateral meniscus tear which she says is not new. Orthopedic consultation appreciated. She had aspiration of the effusion of the right knee with no evidence of infection. Right knee is in Topher bandage right now. Local care. She will discuss with her PCP whether she should pursue arthroscopic repair in the future as an outpatient. (4) Weakness: Plan: Generalized. No focal deficits. (5) Alcohol use disorder: Plan: Previously on Campral although this does not appear to be on a current medication list (6) Liver cirrhosis: Plan: Alcohol induced. Supportive care (7) Pancytopenia: Plan: Most likely due to bone marrow suppression from alcohol use. She undoubtedly has a degree of hypersplenism related to the cirrhosis causing the chronic thrombocytopenia. (8) Elevated INR: Plan: Mild coagulopathy due to underlying cirrhosis. (9) Hypertension: Plan: Stable. Continue carvedilol at discharge Plan Return to [facility] today, February 05 Admission and Anticipated Discharge Date Admission Date: February 05, 2024 Subjective Alert and oriented. She had the right knee effusion tapped by orthopedics. No evidence of infection. MRI scan reveals lateral meniscus tear which she says is not new. I suggested she discuss with her PCP whether she should pursue arthroscopic repair or not. Nevertheless, she is stable for discharge back to [facility] todayFebruary 05 Review of Systems 2 Review of Systems: Constitutionalno fever or chills ENTno blurred vision, no double vision, no epistaxis, no sore throat Respiratoryno cough, no wheezing, no shortness of breath Cardiacno palpitations, no chest pain, no syncope Khanh nausea, vomiting, diarrhea, melena, hematochezia GUno urinary retention, no urinary incontinence, no dysuria, no hematuria Musculoskeletalright knee discomfort with weightbearing. No muscle tenderness Skinno bruising, no rashes, no pruritus Neurono isolated weakness, no paresthesia, no weakness Psychno depression, no anxiety Physical Exam 2 Physical Exam: General-alert and oriented x3, no fever, no chills HEENT-head atraumatic and normocephalic, pupils equal and reactive to light, extraocular muscles intact Neck-no lymphadenopathy or thyromegaly, trachea midline Chest-clear to auscultation. No rales, wheezing or rhonchi Cardiac-regular rate and rhythm, normal S1 and S2 Abdomen-normal bowel sounds, no hepatosplenomegaly Extremities-the right knee is Topher wrapped. No peripheral edema Neuro-cranial nerves II through XII intact, motor and sensory function within normal limits, strength symmetrical, no focal deficits Psych-normal affect, normal mood Results & Data Results & Data Vital Signs (Past 12 Hours) Vital Signs Temp Pulse Pulse Resp BP Pulse Ox O2 Del Method 02/06/24 08:00 73 02/06/24 07:40 37.0 C 73 18 103/68 97 Room Air 02/06/24 02:21 36.8 C 73 16 113/73 96 Room Air Laboratory Results 02/06/24 05:46 02/06/24 05:46 PG Care Time/CCT Total # of Minutes Spent Total Time Spent with Patient: Total time spent is greater than 50% in coordination of care (as documented) at patient's floor/unit and/or counseling patient: Coding Level of Care Code 91001 SUB INP/OBS CARE 3/50MIN Diagnoses Other hypervolemia E87.79 Hypervolemia type: other Right leg swelling M79.89 Effusion, right knee M25.461 Weakness R53.1 Alcohol use disorder F10.90 Liver cirrhosis K74.60 Pancytopenia D61.818 Elevated INR R79.1 Hypertension I10 (1) Hypervolemia Hypervolemia type: other Qualified Code(s): E87.79 - Other fluid overload
--- NOTE | 2024-02-06 13:01 | Discharge Summary ---
Discharge Summary Date of Service February 06, 2024 Principal Dx & Hospital Course #1 = Principal Diagnosis (1) Hypervolemia: Weight increased with bilateral leg swelling . Abdomen ultrasound reveals evidence of cirrhosis. No ascites seen on abdomen ultrasound. (2) Right leg swelling: Right lower extremity venous Doppler evaluation negative for DVT (3) Effusion, right knee: She apparently fell at [facility]. MRI scan reveals lateral meniscus tear which she says is not new. Orthopedic consultation appreciated. She had aspiration of the effusion of the right knee with no evid ence of infection. Right knee is in Topher bandage right now. Local care. She will discuss with her PCP whether she should pursue arthroscopic repair in the future as an outpatient. (4) Weakness: Generalized. No focal deficits. (5) Alcohol use disorder: Previously on Campral although this does not appear to be on a current medication list (6) Liver cirrhosis: Alcohol induced. Supportive care (7) Pancytopenia: Most likely due to bone marrow suppression from alcohol use. She undoubtedly fish s a degree of hypersplenism related to the cirrhosis causing the chronic thrombocytopenia. (8) Elevated INR: Mild coagulopathy due to underlying cirrhosis. (9) Hypertension: Stable. Continue carvedilol at discharge Plan Return to [facility] today, February 05 Admission HPI Per Admitting Provider Claribel Kyle is a 49 year old female from [facility] who presents to the ER with generalized weakness and fall. History limited by lack of records from outside institutions and patient memory - history largely obtained from nurses at [facility] over the phone. She came to the ER today because on ambulating towards the bathroom she fell and was unable to ambulate following this or bear any weight on her right knee. She denies any dizziness, chest pain, shortness of breath prior to falling. She is unclear on history for the pain and swelling of her right knee but appears to have been ongoing for atleast the last month but getting wrose. She denies any history of gout or inflammatory arthritis. On discussion with [facility] she has a history of meniscal tear of her right knee listed on her problem list on admission there in mid January. She has a history of alcohol use disorder. She was admitted to [facility] and went through withdrawal. She was transferred to [facility] mid January for ongoing rehabilitation. During her time there she notes gaining 25 to 30 pounds over the last 5 weeks with significant leg swelling. Weight 239lb on 01/10/24 (admission weight at [facility], today's weight 259lb). No chest pain or shortness of breath. She was taking Lasix at [facility] although reportedly was discontinued for the last few days possibly due to dizziness. She was on additional doses of Lasix for fluid retention for 3 days a mid-January. No known history of heart failure. She has noticed some dizziness but not prior to this fall. She reports having a new medication around 1 to 2 PM which causes her to be dizzy, nauseous, tired and clammy. On discussion with [facility] I suspect this is her Latuda which is a new medication for her during her time at [facility] and she takes around 5pm unlike her other medications at 8am and 8pm. Previously she was on vilazodone which on discussion with her I believe this started at [place] but discontinued shortly after she went to [facility]. Reportedly she went to [facility] on January 22 due to ambulatory dysfunction and was discharged from the ER with a diagnosis of liver cirrhosis and hypoalbuminemia She reports not taking any of her morning medications today. She denies any fever, chills, respiratory, gastrointestinal or urinary symptoms. She notes prior noncompliance with medications but she has been compliant since July. Discharge Exam General-alert and oriented x3, no fever, no chills HEENT-head atraumatic and normocephalic, pupils equal and reactive to light, extraocular muscles intact Neck-no lymphadenopathy or thyromegaly, trachea midline Chest-clear to auscultation. No rales, wheezing or rhonchi Cardiac-regular rate and rhythm, normal S1 and S2 Abdomen-normal bowel sounds, no hepatosplenomegaly Extremities-the right knee is Topher wrapped. No peripheral edema Neuro-cranial nerves II through XII intact, motor and sensory function within normal limits, strength symmetrical, no focal deficits Psych-normal affect, normal mood Discharge Plan Discharge Items Patient Disposition: Drug & Alcohol Rehab Reason For Visit: HYPERVOLEMIA, RIGHT LEG/KNEE PAIN Discharge Diagnosis: Right knee effusion, ambulatory dysfunction Activity: Resume your previous activity Non-emergency contact: Primary Care Provider Call non-emergency contact if: your symptoms worsen Follow-up/Referrals: [facility] [Primary Care Provider] - Diet: Regular Addtl Attending Provider Instructions: Discussed with primary care provider whether right knee lateral meniscus tear needs to be repaired are not Pending Studies at Discharge: No Stand-Alone Forms: My [facility] Skilled Items Patient informed of condition?: Yes DNR: No Discharge Level of Care: Other Communicable Disease: No Discharge Prognosis: Stable Lines: None Urinary Catheter: No Medications and DC Order Prescriptions: Continued potassium chloride 10 mEq Capsule, Extended Release 10 meq PO DAILY quetiapine 100 mg tablet 150 mg PO HS carvedilol 3.125 mg tablet 3.125 mg PO BID Rx Instructions: T1T1D, MAY BE MAKING HER SICK / DIZZY NEW MED 01/14 levothyroxine 50 mcg tablet 50 mcg PO DAILY ferrous sulfate [FeroSul] 325 mg (65 mg iron) tablet 325 mg PO DAILY medroxyprogesterone 150 mg/mL suspension 150 mg IM DIRECTED Rx Instructions: EVERY 3 MONTHS buspirone 10 mg tablet 10 mg PO BID lamotrigine 100 mg tablet 100 mg PO BID furosemide 40 mg Tablet 40 mg PO QAM pantoprazole 40 mg Tablet,Delayed Release (Dr/Ec) 40 mg PO DAILY lactulose 10 gram/15 mL Solution 10 g PO DAILY lurasidone [Latuda] 40 mg Tablet 40 mg PO QDL Rx Instructions: must administer with food (at least 350 calories) 5pm Admission Data Admit Date/Time: 02/05/24 13:12 Attending Provider: Julio Cesar Bazzi Admit Provider: Abner Parham Primary Care Provider: [facility] Other Providers: Matthew Chatterjee Hospital Stay Data Consultations 02/05/24 16:52 Consult Orthopedic Surgery Routine Diagnostic Imagining Performed 02/05/24 08:10 CT head/brain wo con Stat 02/05/24 10:48 US abdomen complete Stat 02/05/24 12:21 US venous doppler LE RT Stat 02/06/24 08:00 MRI Knee [MR knee RT wo con] Urgent Pending Results Patient Have Any Pending Studies at Discharge: No Discharge Instructions Given to Patient (Per Discharging Provider) Discussed with primary care provider whether right knee lateral meniscus tear needs to be repaired are not Total Time Total Time Spent Total Time Spent (In Minutes): 45 minutes Coding Level of Care Code 76756 INP/OBS DISCH >30 MIN Diagnoses Other hypervolemia E87.79 Hypervolemia type: other Right leg swelling M79.89 Effusion, right knee M25.461 Weakness R53.1 Alcohol use disorder F10.90 Liver cirrhosis K74.60 Pancytopenia D61.818 Elevated INR R79.1 Hypertension I10
--- NOTE | 2024-02-06 15:25 | Psychiatric Consultation ---
Date of Consultation February 06, 2024 Psych History Chief Complaint "[]". Allergies Allergy/AdvReac Type Severity Reaction Status Date / Time No Known Allergies Allergy Unverified 02/05/24 14:18 Home Medications Medication Instructions Recorded Confirmed Type buspirone 10 mg tablet 10 mg PO BID 02/05/24 02/05/24 History carvedilol 3.125 mg tablet 3.125 mg PO BID 02/05/24 02/05/24 History ferrous sulfate 325 mg (65 mg 325 mg PO DAILY 02/05/24 02/05/24 History iron) tablet (FeroSul) furosemide 40 mg tablet 40 mg PO QAM 02/05/24 02/05/24 History lactulose 10 gram/15 mL oral 10 g PO DAILY 02/05/24 02/05/24 History solution lamotrigine 100 mg tablet 100 mg PO BID 02/05/24 02/05/24 History levothyroxine 50 mcg tablet 50 mcg PO DAILY 02/05/24 02/05/24 History lurasidone 40 mg tablet (Latuda) 40 mg PO QDL 02/05/24 02/05/24 History medroxyprogesterone 150 mg/mL 150 mg IM DIRECTED 02/05/24 02/05/24 History intramuscular suspension pantoprazole 40 mg tablet,delayed 40 mg PO DAILY 02/05/24 02/05/24 History release potassium chloride 10 mEq 10 meq PO DAILY 02/05/24 02/05/24 History capsule,extended release quetiapine 100 mg tablet 150 mg PO HS 02/05/24 02/05/24 History Patient History Medical History History of torn meniscus of right knee Hypertension Liver cirrhosis Anxiety Bipolar 1 disorder Borderline personality disorder Depression Hypothyroidism Social History Smoking Status: Unknown if ever smoked Hx Alcohol Use: Yes Hx Substance Use: Yes Last Used Substance Other:: Unable to provide details Preferred Language: Bulgarian Communication Ability: Effective Client Technical Specialist Required: No Current Living Situation: Other Current Living Situation Comment: facilitiy Feels Safe at Home: Yes Assistive Devices: None Physical Exam Vital Signs (Past 24 Hours): Last Vital Signs Temp 37.0 C 02/06/24 07:40 Pulse 83 02/06/24 14:07 Resp 18 02/06/24 07:40 BP 103/68 02/06/24 07:40 Pulse Ox 97 02/06/24 07:40 O2 Del Method Room Air 02/06/24 07:40 Results & Data (PSY) Medications Administered Buspirone HCl (Buspirone 5 Mg Tab) 10 mg PO BID [facility] Stop: 03/06/24 20:59 Last Admin: 02/06/24 10:07 Dose: 10 mg Documented By: Admin: 02/05/24 22:51 Dose: 10 mg Documented By: JACOBY Furosemide (Furosemide 40 Mg/4 Ml Vial) [facility] Stop: 03/07/24 08:59 Last Admin: 02/06/24 10:07 Dose: 40 mg Documented By: VALENTINR Lactulose (Lactulose Syrup 10 Gm/15 Ml Btl 960 Ml) 10 gm PO DAILY [facility] Stop: 03/07/24 08:59 Last Admin: 02/06/24 10:08 Dose: 10 gm Documented By: PATRICIA Lamotrigine (Lamotrigine 100 Mg Tab) 100 mg PO BID [facility]; Protocol Stop: 03/06/24 20:59 Last Admin: 02/06/24 10:08 Dose: 100 mg Documented By: Admin: 02/05/24 22:52 Dose: 100 mg Documented By: JACOBY Levothyroxine Sodium (Levothyroxine Sodium 50 Mcg Tablet) 50 mcg PO DAILYBB [facility] Stop: 03/07/24 06:29 Last Admin: 02/06/24 05:24 Dose: 50 mcg Documented By: JACOBY Pantoprazole Sodium (Pantoprazole 40 Mg Tab) 40 mg PO DAILY [facility] Stop: 03/07/24 08:59 Last Admin: 02/06/24 10:08 Dose: 40 mg Documented By: PATRICIA Potassium Chloride (Potassium Chloride 10 Meq Tabcr) 10 meq PO DAILY [facility] Stop: 03/07/24 08:59 Last Admin: 02/06/24 10:10 Dose: 10 meq Documented By: PATRICIA Quetiapine Fumarate (Quetiapine Fumarate 25 Mg Tablet) 150 mg PO HS [facility] Stop: 03/06/24 20:59 Last Admin: 02/05/24 23:22 Dose: Not Given Documented By: JACOBY Thiamine HCl (Thiamine Hcl 100 Mg Tab) 100 mg PO QAM [facility] Stop: 03/07/24 08:59 Last Admin: 02/06/24 10:09 Dose: 100 mg Documented By: RRR Coding Level of Care Code None
[2024-02-06] MEDS ORDERED: LURASIDONE HCL 20 MG TAB PO SCH (17:00)
--- NOTE | 2024-02-06 18:48 | Procedure Note ---
Procedure Note Date of Service February 06, 2024 Coding
== END 2024-02-06 19:05 | disposition alcohol treatment (31) ==
LOC: ED 07:25 → EDINP 07:25 → SUATTDRO 13:12 → 2N 14:22